=== PATIENT | female | born 1950 | race African-American/Black ===

== ENCOUNTER → 2017-11-07 19:42 | Outpatient (CLI) | payer MEDICAID | END | disposition home or self-care (01) | LOC: D.MAMMO 13:15 | DX: Z12.31 Encounter for screening mammogram for malignant neoplasm of breast (principal) ==

== ENCOUNTER 2020-01-31 09:30 | Outpatient (CLI) | payer MEDICARE | END 2020-01-31 10:30 | disposition home or self-care (01) | LOC: D.MAMMO 09:30 | PROVIDERS: ATTEND Family Medicine | DX: Z12.31 Encounter for screening mammogram for malignant neoplasm of breast (principal) ==